=== PATIENT | female | born 1990 | race Caucasian/White ===

== ENCOUNTER → 2020-02-06 | Outpatient (CLI) | payer OTHER | END | disposition home or self-care (01) | LOC: LAB SHORT 15:40 → LAB 15:40 | DX: J02.9 Acute pharyngitis, unspecified (principal) | CPT/HCPCS: 87081; 87147 ==

== ENCOUNTER → 2020-06-22 | Outpatient (CLI) | payer OTHER ==
[2020-06-23 14:00] LABS: Candida species (DNA Probe) Positive (NEGATIVE); G. vaginalis (DNA Probe) Positive (NEGATIVE); T. vaginalis (DNA Probe) Negative (NEGATIVE)
[2020-06-25 03:10] LABS: CHLAMYDIA TRACHOMATIS, NAA Negative (Negative)
== END | disposition home or self-care (01) ==
LOC: LAB SHORT 18:30 → LAB 18:30
PROVIDERS: Family Medicine
DX: N76.0 Acute vaginitis (principal)
CPT/HCPCS: 87086; 87480; 87491; 87510; 87591; 87660

== ENCOUNTER → 2020-07-25 | Outpatient (CLI) | payer OTHER ==
[2020-07-25 20:20] LABS: Adenovirus F 40/41 Not Detected (NOT DETECT); Astrovirus Not Detected (NOT DETECT); Campylobacter Sp Not Detected (NOT DETECT); Cryptosporidium Not Detected (NOT DETECT); Cyclospora Cayetanensis Not Detected (NOT DETECT); E. Coli O157 Not Detected (NOT DETECT); Entamoeba Histolytica Not Detected (NOT DETECT); Enteroaggregative E. coli-EAEC Not Detected (NOT DETECT); Enteropathogenic E. coli-EPEC Not Detected (NOT DETECT); Enterotoxigenic E. coli-ETEC Not Detected (NOT DETECT); Giardia Lamblia Not Detected (NOT DETECT); Norovirus GI/GII Not Detected (NOT DETECT); Plesiomonas Shigelloides Not Detected (NOT DETECT); Rotavirus A Not Detected (NOT DETECT); Salmonella Sp Not Detected (NOT DETECT); Sapovirus Not Detected (NOT DETECT); Shiga Toxin-prod E. coli-STEC Not Detected (NOT DETECT); Shigella/Enteroin E. coli-EIEC Not Detected (NOT DETECT); Vibrio Cholerae Not Detected (NOT DETECT); Vibrio Sp Not Detected (NOT DETECT); Yersinia Enterocolitica Not Detected (NOT DETECT)
[2020-07-26 10:44] LABS: Candida species (DNA Probe) Negative (NEGATIVE); G. vaginalis (DNA Probe) Negative (NEGATIVE); T. vaginalis (DNA Probe) Negative (NEGATIVE)
== END | disposition home or self-care (01) ==
LOC: LAB 15:30 → LAB SHORT 15:30
PROVIDERS: Nurse Practitioner
DX: K52.9 Noninfective gastroenteritis and colitis, unspecified (principal)
CPT/HCPCS: 0097U; 87324; 87480; 87510; 87660

== ENCOUNTER → 2021-01-20 | Outpatient (CLI) | payer OTHER | END | disposition home or self-care (01) | LOC: LAB SHORT 18:14 → LAB 18:14 | DX: R30.0 Dysuria (principal) | CPT/HCPCS: 87077; 87086; 87186 ==

== ENCOUNTER → 2021-03-23 | Outpatient (CLI) | payer OTHER ==
[2021-03-26 02:10] LABS: CHLAMYDIA TRACHOMATIS, NAA Negative (Negative)
== END | disposition home or self-care (01) ==
LOC: LAB SHORT 19:21
PROVIDERS: Physician Assistant
DX: N89.8 Other specified noninflammatory disorders of vagina (principal)
CPT/HCPCS: 87070; 87205; 87491; 87591

== ENCOUNTER → 2021-06-15 | Outpatient (CLI) | payer OTHER ==
[2021-06-16 11:00] LABS: Candida species (DNA Probe) Negative (NEGATIVE); G. vaginalis (DNA Probe) Negative (NEGATIVE); T. vaginalis (DNA Probe) Negative (NEGATIVE)
== END | disposition home or self-care (01) ==
LOC: LAB SHORT 17:03 → LAB 17:03
PROVIDERS: Family Medicine
DX: Z01.419 Encounter for gynecological examination (general) (routine) without abnormal findings (principal); N89.8 Other specified noninflammatory disorders of vagina
CPT/HCPCS: 87480; 87510; 87660; G0123